=== PATIENT | female | born 2005 | race African-American/Black ===

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

== ENCOUNTER 2023-12-28 03:50 | Emergency (ER) | payer OTHER ==
[2023-12-28 03:57] VITALS: BP 131/75; PULSE 85; RESP 20; TEMP 98.5; BMI 29.0
== END 2023-12-28 05:05 | disposition home or self-care (01) ==
LOC: JER 03:50
DX: R07.89 Other chest pain (principal)
CPT/HCPCS: 93005; 93010; 99283-25